=== PATIENT | male | born 1965 | race Caucasian/White ===

== ENCOUNTER 2018-08-06 14:01 | Inpatient (IN) | payer OTHER ==
[2018-08-06 15:29] VITALS: BMI 26.9
--- NOTE | 2018-08-06 15:43 | HP ---
CIWA Score Nausea/Vomitin-No Nausea/No Vomiting Muscle Tremors: 3 Anxiety: 3 Agitation: 1-Slight > Activity Paroxysmal Sweats: 3 Orientation: 0-Oriented Tacttile Disturbances: 3-Moderate Itch/Numb/Burn Auditory Disturbances: 0-None Visual Disturbances: 0-None Headache: 0-None Present CIWA-Ar Total Score: 13 - Admission Criteria OASAS Guidelines: Admission for Medically Managed Detox: Requires at least one of the followin. CIWA greater than 12 2. Seizures within the past 24 hours 3. Delirium tremens within the past 24 hours 4. Hallucinations within the past 24 hours 5. Acute intervention needed for co occurring medical disorder 6. Acute intervention needed for co occurring psychiatric disorder 7. Severe withdrawal that cannot be handled at a lower level of care (continued vomiting, continued diarrhea, abnormal vital signs) requiring intravenous medication and/or fluids 8. Admission ROS [facility] - [facility] Chief Complaint: ETOH WITHDRAWAL SX. Allergies/Adverse Reactions: Allergies Allergy/AdvReac Type Severity Reaction Status Date / Time No Known Allergies Allergy Verified 08/06/18 15:34 History of Present Illness: PATIENT ETOH WITHDRAWAL SX. THIS IS PATIENT'S FIRST ADMISSION TO DETOX AND [facility]. PATIENT HAS BEEN DRINKING HEAVILY SINCE 2016. STATES HE HIDES HIS DRINKING FROM HIS FAMILY AND DRINKS ALL DAY LONG SINCE LOSING HIS JOB. PATIENT HAS H/O BINGE DRINKING, +EYE ROUGE PRESSER. DENIES SEIZURES, BLACKOUTS AND FALLS. PMH INCLUDES CAD, STENT PLACEMENT X 3, HTN, DEPRESSION/ANXIETY, GOUT AND HLD. PATIENT DENIES SI/HI AND SUICIDE ATTEMPTS. Exam Limitations: No Limitations - Ebola screening Have you traveled outside of the country in the last 21 days: No (N) Have you had contact with anyone from an Ebola affected area: No Have you been sick,other than usual withdrawal symptoms: No Do you have a fever: No - Review of Systems Constitutional: Chills, Night Sweats, Changes in sleep EENT: reports: No Symptoms Reported Respiratory: reports: No Symptoms reported Cardiac: reports: Palpitations (OCCASIONAL PALPITATIONS) GI: reports: Poor Appetite, Poor Fluid Intake, Indigestion : reports: No Symptoms Reported Musculoskeletal: reports: No Symptoms Reported Integumentary: reports: Erythema, Flushing Neuro: reports: Headache, Tremors Endocrine: reports: No Symptoms Reported Hematology: reports: No Symptoms Reported Psychiatric: reports: Orientated x3, Anxious, Depressed Patient History - Patient Medical History Hx Anemia: Yes Hx Asthma: No Hx Chronic Obstructive Pulmonary Disease (COPD): No Hx Cancer: No Hx Cardiac Disorders: No (3x stent 2016) Hx Congestive Heart Failure: No Hx Hypertension: Yes Hx Hypercholesterolemia: Yes Hx Pacemaker: No HX Cerebrovascular Accident: No Hx Seizures: No Hx Dementia: No Hx Diabetes: No Hx Gastrointestinal Disorders: Yes (gi ulcer) Hx Liver Disease: No Hx Genitourinary Disorders: No Hx Sexually Transmitted Disorders: No Hx Renal Disease (ESRD): No Hx Thyroid Disease: No Hx Human Immunodeficiency Virus (HIV): No (negative ) Hx Hepatitis C: No Hx Depression: No Hx Suicide Attempt: No Hx Bipolar Disorder: No Hx Schizophrenia: No - Patient Surgical History Past Surgical History: Yes Hx Cardiac Surgery: Yes (cardiac stent placement x 3 2015) Hx Lung Surgery: No Hx Breast Surgery: No Hx Breast Biopsy: No Hx Abdominal Surgery: No Hx Appendectomy: No Hx Cholecystectomy: No Hx Genitourinary Surgery: No Hx Orthopedic Surgery: Yes (bilateral knee arthroscopy) Anesthesia Reaction: No - PPD History Previous Implant?: No Documented Results: Negative w/o proof PPD to be Administered?: Yes - Smoking Cessation Smoking history: Never smoked Have you smoked in the past 12 months: No Hx Chewing Tobacco Use: No Initiated information on smoking cessation: No - Substance & Tx. History Hx Alcohol Use: Yes Hx Substance Use: No Substance Use Type: Alcohol Hx Substance Use Treatment: No - Substances Abused Alcohol Route: Oral Frequency: Daily Amount used: PINTS, VARIES Age of first use: 16 Date of Last Use: 08/06/18 Family Disease History - Family Disease History Family Disease History: Heart Disease: Father (), Mother () Admission Physical Exam S - Vital Signs Vital Signs: Vital Signs - 24 hr 08/06/18 15:20 Temperature 96.7 F L Pulse Rate 105 H Respiratory 20 Rate Blood Pressure 132/87 - Physical General Appearance: Yes: Nourished, Appropriately Dressed, Tremorous, Anxious HEENTM: Yes: EOMI, Hearing grossly Normal, Normocephalic, Normal Voice, CHERRI, Pharynx Normal Respiratory: Yes: Chest Non-Tender, Lungs Clear, Normal Breath Sounds, No Respiratory Distress, No Accessory Muscle Use Neck: Yes: No masses,lesions,Nodules, Supple, Trachea in good position Breast: Yes: Breast Exam Deferred Cardiology: Yes: Regular Rhythm, Regular Rate, S1, S2 Abdominal: Yes: Normal Bowel Sounds, Non Tender, Soft Genitourinary: Yes: Within Normal Limits Back: Yes: Normal Inspection Musculoskeletal: Yes: full range of Motion, Gait Steady, Pelvis Stable Extremities: Yes: Normal Inspection, Normal Range of Motion, Non-Tender Neurological: Yes: billing rep II-XII NML intact, Fully Oriented, Alert, Motor Strength 5/5, Normal Response, Depressed Affect Integumentary: Yes: Warm, Erythema, Moist Lymphatic: Yes: Within Normal Limits - Diagnostic (1) Alcohol dependence with uncomplicated withdrawal Current Visit: Yes Status: Acute (2) HTN (hypertension) Current Visit: Yes Status: Acute Qualifiers: Hypertension type: essential hypertension Qualified Code(s): I10 - Essential (primary) hypertension (3) HLD (hyperlipidemia) Current Visit: Yes Status: Chronic Qualifiers: Hyperlipidemia type: unspecified Qualified Code(s): E78.5 - Hyperlipidemia , unspecified (4) Gout Current Visit: Yes Status: Chronic Qualifiers: Chronicity: unspecified (5) Stented coronary artery Current Visit: Yes Status: Resolved (6) Anxiety Current Visit: Yes Status: Chronic (7) GERD (gastroesophageal reflux disease) Current Visit: Yes Status: Chronic Qualifiers: Esophagitis presence: esophagitis presence not specified Qualified Code(s) : K21.9 - Gastro-esophageal reflux disease without esophagitis Cleared for Admission [facility] - Detox or Rehab [facility] Level of Care: Medically Managed Detox Regimen/Protocol: Librium S Breath Alcohol Content Breath Alcohol Content: 0.195 Urine Drug Screen - Results Drug Screen Negative: Yes Inpatient Rehab Admission - Rehab Decision to Admit Inpatient rehab admission?: No
[2018-08-06] MEDS ORDERED: ACETAMINOPHEN 325 MG TABLET (FP) PO PRN (16:20)
[2018-08-06] MEDS ORDERED: BISMUTH SUBSALICYLATE 524 MG/30 ML UD PO PRN (16:20)
[2018-08-06] MEDS ORDERED: MAGNESIUM HYDROX 2400MG/30ML ORAL SUSPENSION 30 ML CUP PO PRN (16:20)
[2018-08-06] MEDS ORDERED: BACLOFEN 10 MG TABLET (FP) PO PRN (16:20)
[2018-08-06] MEDS ORDERED: MAG HYDROX/AL HYDROX/SIMETH 30 ML UNIT-DOSE CUP PO PRN (16:20)
[2018-08-06] MEDS ORDERED: MAGNESIUM CITRATE 300 ML BOTTLE PO PRN (16:20)
[2018-08-06] MEDS ORDERED: IBUPROFEN 400 MG TABLET (FP) PO PRN (16:20)
[2018-08-06] MEDS ORDERED: MELATONIN 5 MG TABLETS PO PRN (16:20)
[2018-08-06] MEDS ORDERED: hydrOXYzine PAMOATE 25 MG CAPSULE (FP) PO PRN (16:20)
[2018-08-06] MEDS ORDERED: MENTHOL/PHENOL 1 EACH UD MM PRN (16:20)
[2018-08-06] MEDS ORDERED: chlordiazePOXIDE HCL 25 MG CAPSULE PO PRN (16:23)
[2018-08-06] MEDS: chlordiazePOXIDE HCL 25 MG CAPSULE PO SCH ×2 (17:59→22:15)
[2018-08-06] MEDS: THIAMINE HCL 100 MG TABLET (FP) PO SCH (22:15)
[2018-08-07] MEDS: chlordiazePOXIDE HCL 25 MG CAPSULE PO SCH ×4 (05:53→22:22)
[2018-08-07] MEDS ORDERED: BACLOFEN 5 MG PO SCH (06:00)
[2018-08-07] MEDS: PANTOPRAZOLE 40 MG TABLET (FP) PO SCH ×2 (10:10→10:12)
[2018-08-07] MEDS: metoPROLOL SUCCINATE 25 MG TAB.SR.24H (FP) PO SCH (10:12)
[2018-08-07] MEDS: PRENATAL VITAMINS W/ FOLIC ACID TABLET (FP) PO SCH (10:12)
[2018-08-07] MEDS: amLODIPine BESYLATE 5 MG TABLET (FP) PO SCH (10:12)
[2018-08-07 10:51] LABS: ALBUMIN 3.8 g/dl (3.4-5.0); ALK PHOS 116 U/L (45-117); ANION GAP 9 MMOL/L (8-16); BLOOD UREA NITROGEN 14 mg/dL (7-18); CALCIUM 8.5 mg/dL (8.5-10.1); CHLORIDE 102 mmol/L (98-107); CO2 26 mmol/L (21-32); CREATININE 1.2 mg/dL (0.55-1.3); GLUCOSE,RANDOM 145 mg/dL (74-106); POTASSIUM 3.4 mmol/L (3.5-5.1); SGOT/AST 210 U/L (15-37); SGPT/ALT 72 U/L (13-61); SODIUM 137 mmol/L (136-145); TOT PROT 7.4 g/dl (6.4-8.2); URIC ACID 6.3 mg/dL (2.6-7.2)
[2018-08-07] MEDS: COLCHICINE 0.6 MG CAP PO SCH (11:00)
[2018-08-07 11:06] LABS: HEMATOCRIT 37.5 % (35.4-49); HEMOGLOBIN 12.9 GM/dL (11.7-16.9); MCH 35.8 pg (25.7-33.7); MCHC 34.5 g/dl (32.0-35.9); MEAN CELL VOLUME 103.9 fl (80-96); PLATELET COUNT 180 K/MM3 (134-434); RBC 3.61 M/mm3 (4.00-5.60); RDW 13.2 % (11.9-15.9)
--- NOTE | 2018-08-07 11:30 | CONSULT ---
[facility] Psychiatric Consult - Data Date of interview: 08/07/18 Identifying data: Mr Da Silva is a 52 years old [place]-born male,father of 2 children, unemployed living with and supported by , seeking detox treatment for alcohol Substance Abuse History: Reports historyof alcohol use, He started drinking alcohol at age 16, consumes of liquor daily. Last drank on 08/06/18. Refer to addiction counselor for further information Medical History: Significant for anemia, hypertension, dyslipidemia, coronary artery disease, gout, peptic ulcer disease, essential tremor(sees a neurologist and he is precribed Klonopin 0.5 mg po BID), history of stent placement x3 in 2016 and arthroscopic surgery both knees. Psychiatric History: Patient does not speak Uzbek. He speaks Portugese and Turkish. History provided by his . According to , patient became depressed and started drinking heavy after losing his job 2-3 years ago. He has no previous psychiatric contact or suicidal attempt. Physical/Sexual Abuse/Trauma History: Denies history of emotional , physical or sexual abuse as well as DV relationship Additional Comment: No criminal history Mental Status Exam - Mental Status Exam Alert and Oriented to: Time, Place, Person Cognitive Function: Fair Patient Appearance: Well Groomed Mood: Depressed Affect: Appropriate Patient Behavior: Cooperative Speech Pattern: Clear Voice Loudness: Normal Thought Process: Intact, Goal Oriented Thought Disorder: Not Present Hallucinations: Denies Suicidal Ideation: Denies Homicidal Ideation: Denies Insight/Judgement: Poor Sleep: Poorly Appetite: Good Muscle strength/Tone: Normal Gait/Station: Normal Psychiatric Findings - Problem List (Molt 1, 2,3) (1) Alcohol-induced mood disorder Current Visit: Yes Status: Acute (2) MDD (major depressive disorder) Current Visit: Yes Status: Ruled-out (3) Alcohol-induced sleep disorder Current Visit: Yes Status: Acute (4) Alcohol dependence with uncomplicated withdrawal Current Visit: Yes Status: Acute (5) HTN (hypertension) Current Visit: Yes Status: Chronic Qualifiers: Hypertension type: essential hypertension Qualified Code(s): I10 - Essential (primary) hypertension (6) GERD (gastroesophageal reflux disease) Current Visit: Yes Status: Chronic Qualifiers: Esophagitis presence: esophagitis presence not specified Qualified Code(s) : K21.9 - Gastro-esophageal reflux disease without esophagitis (7) Gout Current Visit: Yes Status: Chronic Qualifiers: Chronicity: unspecified (8) HLD (hyperlipidemia) Current Visit: Yes Status: Chronic Qualifiers: Hyperlipidemia type: unspecified Qualified Code(s): E78.5 - Hyperlipidemia , unspecified (9) Stented coronary artery Current Visit: Yes Status: Resolved - Initial Treatment Plan Initial Treatment Plan: 1) Start Melatonin 5 mg po HS prn for insomnia. 2) Continue inpatient detoxification
--- NOTE | 2018-08-07 13:10 | PN ---
S CIWA - CIWA Score Nausea/Vomitin Muscle Tremors: 4-Moderate,w/Arms Extend Anxiety: 4-Mod. Anxious/Guarded Agitation: 4-Moderately Restless Paroxysmal Sweats: 3 Orientation: 0-Oriented Tacttile Disturbances: 0-None Auditory Disturbances: 0-None Visual Disturbances: 0-None Headache: 0-None Present CIWA-Ar Total Score: 17 [facility] Progress Note (SOAP) Subjective: Sweating, tremor, interrupted sleep Objective: 08/07/18 12:59 Last Vital Signs Temp Pulse Resp BP Pulse Ox 97.9 F 110 H 18 129/88 08/07/18 10:00 08/07/18 10:00 08/07/18 10:00 08/07/18 10:00 Laboratory Tests 08/07/18 08/07/18 08/07/18 07:20 07:20 07:20 WBC 5.0 RBC 3.61 L Hgb 12.9 Hct 37.5 MCV 103.9 H MCH 35.8 H MCHC 34.5 RDW 13.2 Plt Count 180 MPV 8.0 Sodium 137 Potassium 3.4 L Chloride 102 Carbon Dioxide 26 Anion Gap 9 BUN 14 Creatinine 1.2 Creat Clearance w eGFR 63.58 Random Glucose 145 H Uric Acid 6.3 Calcium 8.5 Total Bilirubin 1.0 AST 210 H ALT 72 H Alkaline Phosphatase 116 Total Protein 7.4 Albumin 3.8 RPR Titer Nonreactive HIV 1&2 Antibody Screen HIV P24 Antigen 08/07/18 07:20 WBC RBC Hgb Hct MCV MCH MCHC RDW Plt Count MPV Sodium Potassium Chloride Carbon Dioxide Anion Gap BUN Creatinine Creat Clearance w eGFR Random Glucose Uric Acid Calcium Total Bilirubin AST ALT Alkaline Phosphatase Total Protein Albumin RPR Titer HIV 1&2 Antibody Screen Negative HIV P24 Antigen Negative Labs reviewed: K 3.4, serum gluc 145, AST 210, ALT 72 Assessment: 08/07/18 13:02 Withdrawal symptoms Noted with mild hypokalemia, hyperglycemia and elevated LFTs (AST/ALT) Plan: Continue detox Encouraged PO water hydration Mild hypokalemia: K Dur 40 Meq PO x 2 doses (give at least 4 hours a part), repeat serum K level in AM Hyperglycemia: could be related to withdrawal, repeat fasting glucose Elevated LFTs (AST/ALT): most likely r/t alcohol dependence; repeat AST/ALT
[2018-08-07] MEDS ORDERED: POTASSIUM CHLORIDE TABS 20 MEQ TABLET.ER (FP) PO ONE ×2 (14:30→19:00)
[2018-08-07 18:32] LABS: URINE APPEARANCE CLEAR; URINE BILIRUBIN NEGATIVE (<2.0 mg/dL); URINE COLOR YELLOW; URINE GLUCOSE (UA) NEGATIVE (NEGATIVE); URINE KETONE NEGATIVE (NEGATIVE); URINE LEUK ESTERASE NEGATIVE (NEGATIVE); URINE NITRITE NEGATIVE (NEGATIVE); URINE PROTEIN NEGATIVE (NEGATIVE)
[2018-08-07] MEDS ORDERED: ATORVASTATIN CA 40 MG TABLET (FP) PO SCH (22:00)
[2018-08-07] MEDS: THIAMINE HCL 100 MG TABLET (FP) PO SCH (22:22)
--- NOTE | 2018-08-07 23:51 | EKG ---
Test Reason : Blood Pressure : / mmHG Vent. Rate : 095 BPM Atrial Rate : 095 BPM P-R Int : 178 ms QRS Dur : 088 ms QT Int : 380 ms P-R-T Axes : 050 043 058 degrees QTc Int : 477 ms NORMAL SINUS RHYTHM NORMAL ECG NO PREVIOUS ECGS AVAILABLE Confirmed by SHONNA SHRESTHA MD ([id number]) on 08/07/2018 11:51:02 PM Referred By: Confirmed By:SHONNA SHRESTHA MD
[2018-08-08] MEDS: chlordiazePOXIDE HCL 25 MG CAPSULE PO SCH ×2 (05:47→10:40)
[2018-08-08 10:28] LABS: POTASSIUM 3.8 mmol/L (3.5-5.1)
[2018-08-08] MEDS: metoPROLOL SUCCINATE 25 MG TAB.SR.24H (FP) PO SCH (10:37)
[2018-08-08] MEDS: COLCHICINE 0.6 MG CAP PO SCH (10:37)
[2018-08-08] MEDS: amLODIPine BESYLATE 5 MG TABLET (FP) PO SCH (10:38)
[2018-08-08] MEDS: PRENATAL VITAMINS W/ FOLIC ACID TABLET (FP) PO SCH (10:39)
[2018-08-08] MEDS: PANTOPRAZOLE 40 MG TABLET (FP) PO SCH ×2 (10:39→10:40)
[2018-08-08 13:54] VITALS: BP 151/100; PULSE 119; TEMP 98.4
[2018-08-08] MEDS ORDERED: chlordiazePOXIDE HCL 10 MG CAPSULE PO PRN (17:00)
[2018-08-08] MEDS ORDERED: chlordiazePOXIDE HCL 10 MG CAPSULE PO SCH (17:00)
--- NOTE | 2018-08-08 20:08 | PN ---
S CIWA - CIWA Score Nausea/Vomitin-No Nausea/No Vomiting Muscle Tremors: 3 Anxiety: 4-Mod. Anxious/Guarded Agitation: 2 Paroxysmal Sweats: No Perspiration Orientation: 0-Oriented Tacttile Disturbances: 0-None Auditory Disturbances: 0-None Visual Disturbances: 3-Moderate Sensitivity Headache: 0-None Present CIWA-Ar Total Score: 12 [facility] Progress Note (SOAP) Subjective: Tremors, Anxious, Interrupted Sleep. Objective: PATIENT A & O X 3, OBSERVED AMBULATING ON UNIT. IN NO ACUTE DISTRESS. Vital Signs Temperature 98.4 F 08/08/18 13:53 Pulse Rate 119 H 08/08/18 13:53 Respiratory Rate 18 08/08/18 13:53 Blood Pressure 151/100 08/08/18 13:53 O2 Sat by Pulse Oximetry (%) Laboratory Tests 08/07/18 08/07/18 08/07/18 07:20 07:20 07:20 WBC 5.0 RBC 3.61 L Hgb 12.9 Hct 37.5 MCV 103.9 H MCH 35.8 H MCHC 34.5 RDW 13.2 Plt Count 180 MPV 8.0 Sodium 137 Potassium 3.4 L Chloride 102 Carbon Dioxide 26 Anion Gap 9 BUN 14 Creatinine 1.2 Creat Clearance w eGFR 63.58 Random Glucose 145 H Fasting Glucose Uric Acid 6.3 Calcium 8.5 Total Bilirubin 1.0 AST 210 H ALT 72 H Alkaline Phosphatase 116 Total Protein 7.4 Albumin 3.8 Urine Color Urine Appearance Urine pH Ur Specific [place] Urine Protein Urine Glucose (UA) Urine Ketones Urine Blood Urine Nitrite Urine Bilirubin Urine Urobilinogen Ur Leukocyte Esterase RPR Titer Nonreactive HIV 1&2 Antibody Screen HIV P24 Antigen 08/07/18 08/07/18 08/08/18 07:20 08:22 07:00 WBC RBC Hgb Hct MCV MCH MCHC RDW Plt Count MPV Sodium Potassium 3.8 Chloride Carbon Dioxide Anion Gap BUN Creatinine Creat Clearance w eGFR Random Glucose Fasting Glucose 116 H Uric Acid Calcium Total Bilirubin AST 100 H ALT 60 Alkaline Phosphatase Total Protein Albumin Urine Color Yellow Urine Appearance Clear Urine pH 6.0 Ur Specific [place] 1.018 Urine Protein Negative Urine Glucose (UA) Negative Urine Ketones Negative Urine Blood Negative Urine Nitrite Negative Urine Bilirubin Negative Urine Urobilinogen 1.0 Ur Leukocyte Esterase Negative RPR Titer HIV 1&2 Antibody Screen Negative HIV P24 Antigen Negative LABS NOTED. RESULT OF REPEAT K LEVEL NOTED. K LEVEL NOW NOTED TO BE WITHIN NORMAL RANGE. RESULTS OF REPEAT AST AND ALT LEVELS NOTED. REDUCTION IN BOTH ENZYMES NOTED ON REPEAT ASSESSMENT. 08/08/18 20:05 Assessment: 08/08/18 20:07 WITHDRAWAL SYMPTOMS. HYPERTENSION. Plan: CONTINUE DETOX.
--- NOTE | 2018-08-08 20:15 | DS ---
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 RISKS OF LEAVING DETOX UNIT AGAINST MEDICAL ADVICE AND PRIOR TO COMPLETION OF DETOX REGIMEN EXPLAINED TO PATIENT. PATIENT ADVISED TO GO IMMEDIATELY TO NEAREST ER SHOULD ANY INTOLERABLE DETOX SYMPTOMS DEVELOP AT ANY TIME. PATIENT VERBALIZED UNDERSTANDING OF ALL INFORMATION / RECOMMENDATIONS PRESENTED TO HIM PRIOR TO DEPARTURE FROM DETOX UNIT. PATIENT DECLINED OFFER OF MEDICATION PRESCRIPTION FOR HOME MEDICATION AT TIME IN WHICH HE LEFT DETOX UNIT, NOTING THAT HE CURRENTLY HAS ADEQUATE SUPPLIES OF ALL PRESCRIBED HOME MEDICATIONS AT HOME. PATIENT LEFT DETOX UNIT IN STABLE MEDICAL CONDITION. Pertinent Past History: HTN, Hyperlipidemia, History of Anemia, History of Coronary Artery Stents (X 3) , History of GI Ulcer, History of Gout, History of G.E.R.D., History Of Major Depressive Disorder. - Physical Exam Results Vital Signs: Vital Signs Temperature 98.4 F 08/08/18 13:53 Pulse Rate 119 H 08/08/18 13:53 Respiratory Rate 18 08/08/18 13:53 Blood Pressure 151/100 08/08/18 13:53 O2 Sat by Pulse Oximetry (%) Pertinent Admission Physical Exam Findings: WITHDRAWAL SYMPTOMS. Laboratory Tests 08/07/18 08/07/18 08/07/18 07:20 07:20 07:20 WBC 5.0 RBC 3.61 L Hgb 12.9 Hct 37.5 MCV 103.9 H MCH 35.8 H MCHC 34.5 RDW 13.2 Plt Count 180 MPV 8.0 Sodium 137 Potassium 3.4 L Chloride 102 Carbon Dioxide 26 Anion Gap 9 BUN 14 Creatinine 1.2 Creat Clearance w eGFR 63.58 Random Glucose 145 H Fasting Glucose Uric Acid 6.3 Calcium 8.5 Total Bilirubin 1.0 AST 210 H ALT 72 H Alkaline Phosphatase 116 Total Protein 7.4 Albumin 3.8 Urine Color Urine Appearance Urine pH Ur Specific [place] Urine Protein Urine Glucose (UA) Urine Ketones Urine Blood Urine Nitrite Urine Bilirubin Urine Urobilinogen Ur Leukocyte Esterase RPR Titer Nonreactive HIV 1&2 Antibody Screen HIV P24 Antigen 08/07/18 08/07/18 08/08/18 07:20 08:22 07:00 WBC RBC Hgb Hct MCV MCH MCHC RDW Plt Count MPV Sodium Potassium 3.8 Chloride Carbon Dioxide Anion Gap BUN Creatinine Creat Clearance w eGFR Random Glucose Fasting Glucose 116 H Uric Acid Calcium Total Bilirubin AST 100 H ALT 60 Alkaline Phosphatase Total Protein Albumin Urine Color Yellow Urine Appearance Clear Urine pH 6.0 Ur Specific [place] 1.018 Urine Protein Negative Urine Glucose (UA) Negative Urine Ketones Negative Urine Blood Negative Urine Nitrite Negative Urine Bilirubin Negative Urine Urobilinogen 1.0 Ur Leukocyte Esterase Negative RPR Titer HIV 1&2 Antibody Screen Negative HIV P24 Antigen Negative LABS NOTED. - Treatment Hospital Course: Detox Protocol Followed, Detoxed Safely - Medication Discharge Medications: Ambulatory Orders Amlodipine Besylate [Norvasc -] 5 mg PO DAILY 08/06/18 Atorvastatin Ca [Lipitor] 40 mg PO HS 08/06/18 Baclofen 5 mg PO TID 08/06/18 Colchicine [Colcrys] 0.6 mg PO DAILY 08/06/18 Metoprolol Succinate [Toprol Xl] 25 mg PO DAILY 08/06/18 Omeprazole 40 mg PO DAILY 08/06/18 clonazePAM [Klonopin -] 0.5 mg PO BID 08/06/18 - Diagnosis (1) Alcohol dependence with uncomplicated withdrawal Status: Acute (2) Alcohol-induced mood disorder Status: Acute (3) Alcohol-induced sleep disorder Status: Acute (4) Anxiety Status: Chronic (5) GERD (gastroesophageal reflux disease) Status: Chronic Qualifiers: Esophagitis presence: esophagitis presence not specified Qualified Code(s) : K21.9 - Gastro-esophageal reflux disease without esophagitis (6) Gout Status: Chronic Qualifiers: Gout site: unspecified site Gout etiology: unspecified cause Chronicity: unspecified Qualified Code(s): M10.9 - Gout, unspecified (7) HLD (hyperlipidemia) Status: Chronic Qualifiers: Hyperlipidemia type: unspecified Qualified Code(s): E78.5 - Hyperlipidemia , unspecified (8) HTN (hypertension) Status: Chronic Qualifiers: Hypertension type: essential hypertension Qualified Code(s): I10 - Essential (primary) hypertension (9) Stented coronary artery Status: Resolved (10) MDD (major depressive disorder) Status: Ruled-out Qualifiers: Major depression recurrence: unspecified whether recurrent Active/ Remission status: remission status unspecified Qualified Code(s): F32.9 - Major depressive disorder, single episode, unspecified - AMA Did Patient Leave Against Medical Advice: Yes (PATIENT DID NOT WISH TO REMAIN TO COMPLETE DETOX REGIMEN.)
[2018-08-09] MEDS ORDERED: chlordiazePOXIDE HCL 10 MG CAPSULE PO SCH (17:00)
== END 2018-08-08 11:08 | disposition left against medical advice (07) | DRG 770 ==
LOC: YASAS 14:01 → Y6N 16:54
PROVIDERS: ADMIT Surgery; ATTEND Surgery
PROC: HZ2ZZZZ Detoxification Services for Substance Abuse Treatment (ICD-10-PCS; principal; 2018-08-06)
DX: F10.230 Alcohol dependence with withdrawal, uncomplicated (principal); F10.24 Alcohol dependence with alcohol-induced mood disorder; F10.282 Alcohol dependence with alcohol-induced sleep disorder; F32.9 Major depressive disorder, single episode, unspecified; F41.9 Anxiety disorder, unspecified; I10 Essential (primary) hypertension; K21.9 Gastro-esophageal reflux disease without esophagitis; M10.9 Gout, unspecified; E78.5 Hyperlipidemia, unspecified; E87.6 Hypokalemia; R94.5 Abnormal results of liver function studies; R74.0 Nonspecific elevation of levels of transaminase and lactic acid dehydrogenase [LDH]; R73.9 Hyperglycemia, unspecified; Z95.5 Presence of coronary angioplasty implant and graft
CPT/HCPCS: 36415; 80053; 81003; 82947; 84132; 84450; 84460; 84550; 85027; 86593; 87389; 93005; 93010; J0475